=== PATIENT | male | born 1975 | race Caucasian/White ===

== ENCOUNTER 2017-12-20 06:10 | Inpatient (IN) | payer OTHER ==
[2017-12-16 10:30] VITALS: BMI 34.0
[2017-12-20] MEDS ORDERED: BENZOIN/ALOE VERA/STORAX/TOLU 58 ML BOTTLE ONE (07:07)
[2017-12-20] MEDS ORDERED: THROMBIN (BOVINE) 5,000 UNIT VIAL TP ONE ×2 (07:07→10:00)
[2017-12-20] MEDS ORDERED: HEPARIN NA (PORCINE) 5,000 UNITS/ML 1ML VIAL ONE (07:07)
[2017-12-20] MEDS ORDERED: BUPIVACAINE HCL/PF 0.25% (2.5MG/ML) 10 ML VIAL ONE (07:07)
[2017-12-20] MEDS ORDERED: LIDOCAINE HCL/PF 2% SDV 5ML VIAL ONE (07:52)
[2017-12-20] MEDS ORDERED: fentaNYL CITRATE 250 MCG/5 ML VIAL ONE ×3 (07:52→09:21)
[2017-12-20] MEDS ORDERED: MIDAZOLAM HCL 2 MG/2 ML SINGLE DOSE VIAL ONE ×2 (07:53)
[2017-12-20] MEDS ORDERED: PROPOFOL 20 ML ONE ×21 (07:53→10:38)
[2017-12-20] MEDS ORDERED: SUCCINYLCHOLINE CHLORIDE 200 MG/10 ML VIAL ONE (07:53)
[2017-12-20] MEDS ORDERED: ROCURONIUM BROMIDE 50 MG/5 ML VIAL ONE (07:54)
[2017-12-20] MEDS ORDERED: ceFAZolin SODIUM 1 GM VIAL IVPB ONE (08:40)
[2017-12-20] MEDS ORDERED: VANCOMYCIN 1,000 MG VIAL (RESTRICTED TO ID ONLY) ONE (08:41)
[2017-12-20] MEDS ORDERED: ceFAZolin SODIUM 1 GM VIAL ONE (08:41)
[2017-12-20] MEDS ORDERED: VANCOMYCIN 1,000 MG VIAL (RESTRICTED TO ID ONLY) IVPB ONE (08:45)
[2017-12-20] MEDS ORDERED: DEXAMETHASONE SOD PHOSPHATE 4 MG/1 ML VIAL ONE (08:55)
[2017-12-20] MEDS ORDERED: ONDANSETRON 4 MG/2 ML VIAL IVPUSH PRN ×2 (10:15→11:43)
--- NOTE | 2017-12-20 11:39 | PN ---
Progress Note (short form) - Note Progress Note: 42M s/p C4-C5 ACDF POD #0. -Admit to ICU x 24 hrs. for airway observation; OK to downgrade to floor 2017 if airway stable. -In case of emergency, remove anterior cervical spine dressing and pull out running suture. -Maintain head of bed >45 degrees. -Pain control: oral analgesia only. -DVT PPx: -Mechanical only: MANSOOR's, SCD's. -Post-op Ancef x 2 doses. -f/u AM labs. -Incentive spirometry. -PT/OT/Rehab, OOB. -WBAT B/L UE & LE. -No heavy lifting, bending or twisting. -d/c Parker catheter at midnight; f/u TOV. -Keep dressing clean & dry. -Puree diet; advance as tolerated. -B/L UE & LE NV checks. -Care per ICU & primary medical hospitalist teams. -Discharge planning: f/u [facility] [place] office Wednesday12/31/2017; call for appointment; . Se Mayfield MD (Orthopaedic Surgery).
[2017-12-20] MEDS ORDERED: oxyCODONE HCL 5 MG TABLET PO PRN (11:43)
[2017-12-20] MEDS ORDERED: traMADol HCL 50 MG TABLET PO PRN (11:43)
--- NOTE | 2017-12-20 11:43 | OP ---
Operative Note - Note: Operative Date: 12/20/17 Pre-Operative Diagnosis: Cervical radiculopathy Operation: C4-C5 ACDF Post-Operative Diagnosis: Same as Pre-op Surgeon: Se Mayfield Memory Care Director: Rainer Mayfield Anesthesiologist/FARM MACHINERY ASSEMBLER: Dulce Warner Anesthesia: General Specimens Removed: C4-C5 disc Estimated Blood Loss (mls): 20 Fluid Volume Replaced (mls): 700 Operative Report Dictated: Yes
[2017-12-20] MEDS: ACETAMINOPHEN 1000 MG/100 ML VIAL (NON FORMULARY) IVPB PRN (12:15)
[2017-12-20] MEDS: LACTATED RINGERS SOLUTION 1,000 ML IV SCH ×2 (14:30→15:00)
[2017-12-20] MEDS: ACETAMINOPHEN 325 MG TABLET (FP) PO SCH ×3 (15:00→23:06)
[2017-12-20] MEDS: oxyCODONE HCL 5 MG TABLET PO PRN (15:22)
--- NOTE | 2017-12-20 15:34 | CONSULT ---
Consultation: REQUESTING PROVIDER: Dr Mayfield CONSULT REQUEST: We have been asked to medically evaluate this patient for admission to the ICU. HISTORY OF PRESENT ILLNESS: Se Garcia is an otherwise healthy 42yo man who presented today for scheduled surgery with Dr Mayfield. He is now POD #0 s/p C4-C5 ACDF. Admission to the ICU was requested for postoperative airway monitoring and neurovascular checks overnight. The surgery was completed without known complications, and Mr Garcia reports that he is feeling well postoperatively. He notes a 5/10 pain at the surgical site but has no other complaints. REVIEW OF SYSTEMS: CONSTITUTIONAL: Absent: fever, chills, diaphoresis, generalized weakness, malaise, loss of appetite, weight change HEENT: Absent: rhinorrhea, nasal congestion, throat pain, throat swelling, difficulty swallowing, mouth swelling, ear pain, eye pain, visual changes. s/p C4-C5 ACDF, see HPI. CARDIOVASCULAR: Absent: chest pain, syncope, palpitations, irregular heart rate, lightheadedness , peripheral edema RESPIRATORY: Absent: cough, shortness of breath, dyspnea with exertion, orthopnea, wheezing, stridor, hemoptysis GASTROINTESTINAL: Absent: abdominal pain, abdominal distension, nausea, vomiting, diarrhea, constipation, melena, hematochezia GENITOURINARY: Absent: dysuria, frequency, urgency, hesitancy, hematuria, flank pain, genital pain MUSCULOSKELETAL: Absent: myalgia, arthralgia, joint swelling, back pain, neck pain SKIN: Absent: rash, itching, pallor HEMATOLOGIC/IMMUNOLOGIC: Absent: easy bleeding, easy bruising, lymphadenopathy, frequent infections ENDOCRINE: Absent: unexplained weight gain, unexplained weight loss, heat intolerance, cold intolerance NEUROLOGIC: Absent: headache, focal weakness or paresthesias, dizziness, unsteady gait, seizure, mental status changes, bladder or bowel incontinence PSYCHIATRIC: Absent: anxiety, depression, suicidal or homicidal ideation, hallucinations. PHYSICAL EXAMINATION Vital Signs - 24 hr 12/20/17 12/20/17 12/20/17 06:50 07:04 14:53 Temperature 98.1 F 97.8 F Pulse Rate 60 70 Respiratory 20 11 Rate Blood Pressure 110/70 118/78 O2 Sat by Pulse 98 93 L Oximetry (%) 12/20/17 15:05 Temperature 97.8 F Pulse Rate 80 Respiratory 11 Rate Blood Pressure 118/78 O2 Sat by Pulse 93 L Oximetry (%) General: Comfortable, no acute distress HEENT: PERRL, EOMI, MMM, voice normal, normal neck ROM, no LAD. Surgical dressing in place, c/d/i, no strike through. Cards: RRR, no murmur appreciated Pulm: Comfortable on room air, clear to auscultation bilaterally Abd: Soft, nontender, nondistended : No CVA tenderness Ext: Atraumatic. No LE edema. ROM intact. Strength 5/5 and equal bilaterally Vasc: Extremities WWP. Palpable radial and pedal pulses bilaterally Skin: Normal color, no rashes or lesions Neuro: A&Ox3, CN grossly intact, normal speech, motor/sensory grossly intact and symmetric Psych: Mood appropriate to situation Laboratory Results - last 24 hr 12/20/17 12/20/17 06:35 06:35 Blood Type A POSITIVE A POSITIVE Antibody Screen Negative Active Medications Generic Name Dose Route Start Last Admin Trade Name Freq PRN Reason Stop Dose Admin Acetaminophen 1,000 mg 12/20/17 10:19 12/20/17 12:15 Ofirmev Injection - IVPB 1,000 mg Q6H PRN Administration FEVER Acetaminophen 650 mg 12/20/17 11:45 12/20/17 15:00 Tylenol - PO Not Given Q6H HIREN Chlorhexidine Gluconate 1 applic 12/20/17 22:00 Hibiclens For Decolonization - TP HS HIREN Fentanyl 50 mcg 12/20/17 10:15 12/20/17 13:00 Sublimaze Injection - IVPUSH 50 mcg [id number] PRN Administration PAIN-PACU ORDER X 4 DOSES ONLY Lactated Ringer's 1,000 mls @ 125 mls/hr 12/20/17 10:15 12/20/17 15:00 Lactated Ringers Solution IV 125 mls/hr ASDIR HIREN Administration Lactated Ringer's 1,000 mls @ 125 mls/hr 12/20/17 11:45 12/20/17 14:30 Lactated Ringers Solution IV 0 mls ASDIR HIREN Administration Cefazolin Sodium/Dextrose 2 gm in 50 mls @ 100 mls/hr 12/20/17 16:30 Ancef 2 Gm Premixed Ivpb - IVPB 12/20/17 16:59 ONCE ONE Cefazolin Sodium/Dextrose 2 gm in 50 mls @ 100 mls/hr 12/21/17 00:30 Ancef 2 Gm Premixed Ivpb - IVPB 12/21/17 00:59 ONCE ONE Mupirocin 1 applic 12/20/17 22:00 Bactroban Ointment (For Decolonization) - NS 12/25/17 21:59 BID HIREN Ondansetron HCl 4 mg 12/20/17 10:15 Zofran Injection IVPUSH Q6H PRN NAUSEA AND/OR VOMITING Ondansetron HCl 4 mg 12/20/17 11:43 Zofran Injection IVPUSH Q6H PRN NAUSEA AND/OR VOMITING Oxycodone HCl 5 mg 12/20/17 11:43 Roxicodone - PO Q4H PRN PAIN LEVEL4-6 Oxycodone HCl 10 mg 12/20/17 11:43 12/20/17 15:22 Roxicodone - PO 10 mg Q4H PRN Administration PAIN LEVEL 7 - 10 Tramadol HCl 50 mg 12/20/17 11:43 Ultram - PO Q6H PRN PAIN LEVEL 1-5 ASSESSMENT/PLAN: Se Garcia is a 42yo man with no known medical history who was admitted to the ICU for airway monitoring, POD #0 s/p C4-C5 ACDF with Dr Mayfield this morning. Neuro: - s/p C4-C5 ACDF - Neurovascular checks of BLE and BUE per Dr Mayfield - Adequate pain control with acetaminophen 650mg Q6hr. Tramadol, oxycodone 5 , oxycodone 10 PRN CV: - No issues Pulm: - Comfortable on room air - IS 10x per hour Heme: - Hgb WNL - Monitor daily CBC GI: - Pureed diet postoperatively, plan to advance as tolerated Renal: - Parker in place postoperatively. D/C at midnight ID: - Perioperative ancef, 3 total doses - 2g ancef ordered for 14:30 and 00:30 to complete course Endo: - No issues Psych: - No issues Musc: - OOB as tolerated - No heavy lifting, no twisting, no bending. - Elevate HOB to 45 degrees - PT/OT ordered PPx: - Low DVT risk, SCD's. No pharmacologic ppx postoperatively - No indication for GI ppx FEN: - Pureed diet, advance as tolerated - SLIV - Replete lytes PRN Dispo: - Monitor in ICU - Likely to transfer to floor tomorrow Dispo: We will continue to follow the patient. Thank you for this consultative opportunity. To be discussed with Dr Watkins. Sho Amos PGY1 Visit type - Emergency Visit Emergency Visit: No - New Patient This patient is new to me today: Yes Date on this admission: 12/20/17 - Critical Care Critical Care patient: Yes Total Critical Care Time (in minutes): 30 Critical Care Statement: The care of this patient involved high complexity decision making to prevent further life threatening deterioration of the patient 's condition and/or to evaluate & treat vital organ system(s) failure or risk of failure.
[2017-12-20] MEDS ORDERED: CEFAZOLIN 2 GM/D5W 2 GM/50 ML ML IVPB ONE (16:30)
[2017-12-20] MEDS ORDERED: ceFAZolin 2 GRAM PREMIX BAG IVPB SCH (17:00)
--- NOTE | 2017-12-20 20:11 | OP ---
DATE OF OPERATION: DATE OF DICTATION: 12/20/2017 SURGEON: Se Mayfield MD FISCAL ASSISTANT: Rainer Mayfield MD PREOPERATIVE DIAGNOSIS: C4-C5 disk prolapse with C5 radiculopathy. POSTOPERATIVE DIAGNOSIS: C4-C5 disk prolapse with C5 radiculopathy. OPERATION PERFORMED: 1. Anterior cervical diskectomy fusion C4-C5. 2. Partial corpectomy C4. 3. Partial corpectomy C6. ANESTHESIA: General. ANTIBIOTICS GIVEN: Kefzol 2 g, 1 g vancomycin, 10 mg of Decadron given preoperative. DESCRIPTION OF PROCEDURE: The patient was correctly identified and brought to the operating room. Placed supine. Bolster was placed behind the scapulae extending the neck appropriately. The shoulders were pulled down distally for visualization purposes. Routine prepping with Betadine scrub solution, wiped off with alcohol, DuraPrep applied. A window drape applied. The dissection was made at the level of the cricothyroid interval in the lines of Rodger. An oblique incision made in the neck. Dissection was taken through the skin. The platysma was split longitudinally. This enabled easy access to the fuzzies, the areolar plane between the viscera and vessels. This was opened with digital finger dissection, and an 18-gauge needle bent 90/90 was placed in the C4-C5 disk, and this was verified with a lateral fluoroscopic x-ray. A retractor was placed mediolaterally deep to the longus coli with the teeth of the retractors in the longus coli. Pacoima pins were placed proximally and distally, and gentle distraction performed to open up the disk space. The disk was resected completely using curettes. A 40-mm tanja-tip bur was utilized to open up the rectangle, excise off the uncovertebral joints right down to the posterior longitudinal ligament. The posterior longitudinal was resected exposing the dura completely from left to right. All of the bleeding was stopped with bipolar Bovie as well as the use of thrombin and Gelfoam as well as FloSeal. The tissues were thoroughly lavaged once all hemostasis was achieved. A 7-mm Tetrafuse cage inserted. DBM putty was utilized, placed in the cage, and also superficially anteriorly to fill any space gaps. Once this had been performed, the plate, a size 14-mm Precision plate, with 14-mm screws 2 in C4 and 2 in C5 gained solid fixation. Verification of the plates on x-ray revealed good positioning and seating of the screws aimed more towards the endplates rather than axial center of the bone because of the venous singh effect of the center of the bone. The wound was again thoroughly lavaged. Closed the platysma with 3-0 Vicryl, subcutaneous with 3-0 Vicryl, skin 3-0 Monocryl and Steri-Strips. No complications. MD PERLA Malik/[id number]
[2017-12-20] MEDS: MUPIROCIN 2% TOPICAL OINTMENT FOR DECOLONIZATION NS SCH (21:31)
[2017-12-20] MEDS ORDERED: CHLORHEXIDINE GLUCONATE 4% CLEANSER FOR DECOLONIZATION TP SCH (22:00)
[2017-12-21] MEDS ORDERED: CEFAZOLIN 2 GM/D5W 2 GM/50 ML ML IVPB ONE (00:30)
[2017-12-21] MEDS: METOCLOPRAMIDE HCL INJECTION 10 MG/2 ML VIAL IVPUSH PRN ×2 (03:41→11:50)
[2017-12-21] MEDS: LACTATED RINGERS SOLUTION 1,000 ML IV SCH ×3 (03:41→11:45)
[2017-12-21] MEDS: ACETAMINOPHEN 325 MG TABLET (FP) PO SCH ×2 (06:14→11:45)
[2017-12-21 06:46] LABS: HEMATOCRIT 41.8 % (35.4-49); MCH 28.6 pg (25.7-33.7); MCHC 33.6 g/dl (32.0-35.9); MEAN CELL VOLUME 85.2 fl (80-96); MEAN PLT VOLUME 9.4 fl (7.5-11.1); PLATELET COUNT 199 K/MM3 (134-434); RDW 12.9 % (11.9-15.9); WHITE BLOOD COUNT 13.6 K/mm3 (4.0-10.0)
[2017-12-21 07:17] LABS: ANION GAP 6 MMOL/L (8-16); BLOOD UREA NITROGEN 14 mg/dL (7-18); CALCIUM 8.9 mg/dL (8.5-10.1); CHLORIDE 103 mmol/L (98-107); CO2 30 mmol/L (21-32); CREATININE 0.9 mg/dL (0.55-1.3); GLUCOSE,RANDOM 101 mg/dL (74-106); POTASSIUM 4.4 mmol/L (3.5-5.1); SODIUM 139 mmol/L (136-145)
[2017-12-21] MEDS: oxyCODONE HCL 5 MG TABLET PO PRN (08:05)
--- NOTE | 2017-12-21 08:32 | PN ---
Progress Note (short form) - Note Progress Note: Anesthesia POD#1 S/P Anterior Cervical discectomy with cage under GA VSS,had nausea and vomiting overnight,doing better today. Had some liquids Tolerated it,walking around,hiccoup is gone now. H/o AMAURY confirmed today. Gave suggestions to follow instructions for AMAURY. Dulce Warner MD.
--- NOTE | 2017-12-21 09:10 | PN ---
Physical Exam: SUBJECTIVE: Patient seen and examined at bedside, had nausea/vomiting overnight , limited appetite, voiding and passing flatus, no BM as yet. N/V resolved. Currently having hiccups irritating surgical site, given Reglan with some relief. OBJECTIVE: Vital Signs Period Temp Pulse Resp BP Sys/[place] Pulse Ox Last 24 Hr 97.6 F-98.6 F 50-94 11-22 109-163/64-94 93-98 GENERAL: A&Ox3 HEAD: Normal with no signs of trauma. EYES: PERRL, extraocular movements intact, sclera anicteric, conjunctiva clear. No ptosis. ENT: Ears normal, nares patent, oropharynx clear without exudates, moist mucous membranes. NECK: Trachea midline, full range of motion, supple. LUNGS: Breath sounds equal, clear to auscultation bilaterally, no wheezes, no crackles, no accessory muscle use. HEART: Regular rate and rhythm, S1, S2 without murmur, rub or gallop. ABDOMEN: Soft, nontender, nondistended, normoactive bowel sounds, no guarding, no rebound, no hepatosplenomegaly, no masses. EXTREMITIES: 2+ pulses, warm, well-perfused, no edema. NEUROLOGICAL: Cranial nerves II through XII grossly intact. Normal speech, gait not observed. PSYCH: Normal mood, normal affect. SKIN: Warm, dry, normal turgor, no rashes or lesions noted Laboratory Results - last 24 hr 12/21/17 12/21/17 05:30 05:30 WBC 13.6 H RBC 4.90 Hgb 14.0 Hct 41.8 MCV 85.2 MCH 28.6 MCHC 33.6 RDW 12.9 Plt Count 199 MPV 9.4 Sodium 139 Potassium 4.4 Chloride 103 Carbon Dioxide 30 Anion Gap 6 L BUN 14 Creatinine 0.9 Creat Clearance w eGFR > 60 Random Glucose 101 Calcium 8.9 Active Medications Generic Name Dose Route Start Last Admin Trade Name Freq PRN Reason Stop Dose Admin Acetaminophen 1,000 mg 12/20/17 10:19 12/20/17 12:15 Ofirmev Injection - IVPB 1,000 mg Q6H PRN Administration FEVER Acetaminophen 650 mg 12/20/17 11:45 12/21/17 06:14 Tylenol - PO 650 mg Q6H HIREN Administration Chlorhexidine Gluconate 1 applic 12/20/17 22:00 12/20/17 21:31 Hibiclens For Decolonization - TP 1 applic HS HIREN Administration Lactated Ringer's 1,000 mls @ 125 mls/hr 12/20/17 10:15 12/21/17 03:41 Lactated Ringers Solution IV 125 mls/hr ASDIR HIREN Administration Lactated Ringer's 1,000 mls @ 125 mls/hr 12/20/17 11:45 12/20/17 14:30 Lactated Ringers Solution IV 0 mls ASDIR HIREN Administration Metoclopramide HCl 10 mg 12/21/17 03:32 12/21/17 03:41 Reglan Injection - IVPUSH 10 mg Q6H PRN Administration NAUSEA AND/OR VOMITING Mupirocin 1 applic 12/20/17 22:00 12/20/17 21:31 Bactroban Ointment (For Decolonization) - NS 12/25/17 21:59 1 applic BID HIREN Administration Ondansetron HCl 4 mg 12/20/17 10:15 Zofran Injection IVPUSH Q6H PRN NAUSEA AND/OR VOMITING Ondansetron HCl 4 mg 12/20/17 11:43 Zofran Injection IVPUSH Q6H PRN NAUSEA AND/OR VOMITING Oxycodone HCl 5 mg 12/20/17 11:43 Roxicodone - PO Q4H PRN PAIN LEVEL4-6 Oxycodone HCl 10 mg 12/20/17 11:43 12/21/17 08:05 Roxicodone - PO 10 mg Q4H PRN Administration PAIN LEVEL 7 - 10 Tramadol HCl 50 mg 12/20/17 11:43 Ultram - PO Q6H PRN PAIN LEVEL 1-5 ASSESSMENT/PLAN: 42 y/o M w/ no sig PMHx POD1 s/p C4-C5 ACDF #POD1 s/p C4-C5 ACDF -Sx w/o complication, minimal blood loss -Incentive spirometry -Parker removed -Early Ambulation, OOB -Pain controlled with PO Tramadol, Tylenol, Oxicodone HCl 10 mg Q4 PRN for pain 7-10 -Reglan PRN for hiccups -WBAT #DVT PPx -SCDs only #FEN -LR @ 125 -lytes wnl -Advance as tolerated #dispo -critical care no longer required -awaiting surgical/primary team recommendation for d/c vs. transfer to med-surg Visit type - Emergency Visit Emergency Visit: No - New Patient This patient is new to me today: Yes Date on this admission: 12/21/17 - Critical Care Critical Care patient: Yes Total Critical Care Time (in minutes): 40 Critical Care Statement: The care of this patient involved high complexity decision making to prevent further life threatening deterioration of the patient 's condition and/or to evaluate & treat vital organ system(s) failure or risk of failure.
--- NOTE | 2017-12-21 10:10 | PN ---
Physical Exam: SUBJECTIVE: Patient seen and examined this AM. Post op day one. He says his pain was well controlled overnight. He says he is having some soreness and had hiccups yesterday which caused some pain, but that they have resolved today after eating. He says he tolerated his puree breakfast well. He has passed flatus but not yet had a bowel movement. OBJECTIVE: Vital Signs Period Temp Pulse Resp BP Sys/[place] Pulse Ox Last 24 Hr 97.2 F-98.6 F 50-94 11-22 109-163/64-94 93-98 GENERAL: A&O, no acute distress HEAD: Normocephalic, atraumatic. EYES: PERRL, no scleral icterus EARS, NOSE, THROAT: oropharynx clear without exudates. Moist mucous membranes. NECK: supple without lymphadenopathy, dressing in tact anteriorly, clean and dry , minimal tenderness to palpation LUNGS: CTA b/l, no crackles or wheezes HEART: Regular rate and rhythm, normal S1 and S2 without murmur ABDOMEN: Soft, nontender to palpation, normoactive bowel sounds MUSCULOSKELETAL: No bony deformities or tenderness. NEUROLOGICAL: Cranial nerves II-XII grossly intact. Normal speech. PSYCHIATRIC: Cooperative. Good eye contact. Appropriate mood and affect. Laboratory Results - last 24 hr 12/21/17 12/21/17 05:30 05:30 WBC 13.6 H RBC 4.90 Hgb 14.0 Hct 41.8 MCV 85.2 MCH 28.6 MCHC 33.6 RDW 12.9 Plt Count 199 MPV 9.4 Sodium 139 Potassium 4.4 Chloride 103 Carbon Dioxide 30 Anion Gap 6 L BUN 14 Creatinine 0.9 Creat Clearance w eGFR > 60 Random Glucose 101 Calcium 8.9 Active Medications Generic Name Dose Route Start Last Admin Trade Name Freq PRN Reason Stop Dose Admin Acetaminophen 1,000 mg 12/20/17 10:19 12/20/17 12:15 Ofirmev Injection - IVPB 1,000 mg Q6H PRN Administration FEVER Acetaminophen 650 mg 12/20/17 11:45 12/21/17 06:14 Tylenol - PO 650 mg Q6H HIREN Administration Chlorhexidine Gluconate 1 applic 12/20/17 22:00 12/20/17 21:31 Hibiclens For Decolonization - TP 1 applic HS HIREN Administration Lactated Ringer's 1,000 mls @ 125 mls/hr 12/20/17 10:15 12/21/17 03:41 Lactated Ringers Solution IV 125 mls/hr ASDIR HIREN Administration Lactated Ringer's 1,000 mls @ 125 mls/hr 12/20/17 11:45 12/20/17 14:30 Lactated Ringers Solution IV 0 mls ASDIR HIREN Administration Metoclopramide HCl 10 mg 12/21/17 03:32 12/21/17 03:41 Reglan Injection - IVPUSH 10 mg Q6H PRN Administration NAUSEA AND/OR VOMITING Mupirocin 1 applic 12/20/17 22:00 12/20/17 21:31 Bactroban Ointment (For Decolonization) - NS 12/25/17 21:59 1 applic BID HIREN Administration Ondansetron HCl 4 mg 12/20/17 10:15 Zofran Injection IVPUSH Q6H PRN NAUSEA AND/OR VOMITING Ondansetron HCl 4 mg 12/20/17 11:43 Zofran Injection IVPUSH Q6H PRN NAUSEA AND/OR VOMITING Oxycodone HCl 5 mg 12/20/17 11:43 Roxicodone - PO Q4H PRN PAIN LEVEL4-6 Oxycodone HCl 10 mg 12/20/17 11:43 12/21/17 08:05 Roxicodone - PO 10 mg Q4H PRN Administration PAIN LEVEL 7 - 10 Tramadol HCl 50 mg 12/20/17 11:43 Ultram - PO Q6H PRN PAIN LEVEL 1-5 ASSESSMENT/PLAN: 42 yo Male with no PMH admitted s/p C4-C5 ACDF. POD 1 C4C5 ACDF POD 1 -20 cc blood loss intraop, 700 cc of crystalloid replacement -No reported complications intraop -Incentive spirometry -Parker removed -Early Ambulation, OOB -Pain controlled with PO Tramadol, Tylenol, Oxicodone HCl 10 mg Q4 PRN for pain 7-10 -Received reglan yesterday for hiccups, currently resolved, will monitor -Can be transferred to med/surg today or discharged pending surgery okay, no post-op swelling or concerning complications -Physical Therapy Eval, pt requesting soft collar DVT Prophylaxis -Mechanical only, SCD's FEN -Fluids: LR @ 125 cc/hr -Electrolytes: No electrolyte abnormalities, BMP in AM -Nutrition: Tolerating puree well. Can advance as tolerated Disposition ICU, can be transferred to Med/Surg Visit type - Emergency Visit Emergency Visit: No - New Patient This patient is new to me today: Yes Date on this admission: 12/21/17 - Critical Care Critical Care patient: Yes Total Critical Care Time (in minutes): 35 Critical Care Statement: The care of this patient involved high complexity decision making to prevent further life threatening deterioration of the patient 's condition and/or to evaluate & treat vital organ system(s) failure or risk of failure.
[2017-12-21] MEDS: MUPIROCIN 2% TOPICAL OINTMENT FOR DECOLONIZATION NS SCH ×2 (11:50→21:54)
[2017-12-21] MEDS: ACETAMINOPHEN 1000 MG/100 ML VIAL (NON FORMULARY) IVPB PRN (12:33)
[2017-12-21] MEDS ORDERED: oxyCODONE HCL 5 MG TABLET PO PRN ×2 (13:23→17:30)
[2017-12-21] MEDS ORDERED: ACETAMINOPHEN 325 MG TABLET (FP) PO PRN ×2 (13:23→17:30)
--- NOTE | 2017-12-21 13:26 | PN ---
Teaching Attending Note Name of Resident: Derrick Monterroso ATTENDING PHYSICIAN STATEMENT I saw and evaluated the patient. I reviewed the resident's note and discussed the case with the resident. I agree with the resident's findings and plan as documented with exceptions below. SUBJECTIVE: Patient seen and examined. Tolerating diet, with some neck pain. Overall better. Passing gas, no other concerns. OBJECTIVE: Vital Signs Period Temp Pulse Resp BP Sys/[place] Pulse Ox Last 24 Hr 97.1 F-98.6 F 50-84 11-21 109-142/63-84 93-97 Intake & Output 12/18/17 12/19/17 12/20/17 12/21/17 23:59 23:59 23:59 23:59 Intake Total 1700 1650 Output Total 1000 550 Balance 700 1100 General: sitting in chair in no acute distress neck: anterior dressing clean, no bleed or discharge Neuro AAOx3, facial symmetry, neck ROM limited given above, power 5/5 all extremities, sensation intact and symmetric to touch bilateral upper and lower extremities Abdomen:Soft, NT, positive good bowel sounds Extremities: no edema Home Medications Medication Instructions Recorded NK [No Known Home Medication] 12/16/17 Active Medications Acetaminophen (Tylenol -) 650 mg PO Q6H PRN PRN Reason: PAIN LEVEL 1-5 Chlorhexidine Gluconate (Hibiclens For Decolonization -) 1 applic TP HS [facility] Last Admin: 12/20/17 21:31 Dose: 1 applic Metoclopramide HCl (Reglan Injection -) 10 mg IVPUSH Q6H PRN PRN Reason: NAUSEA AND/OR VOMITING Last Admin: 12/21/17 11:50 Dose: 10 mg Mupirocin (Bactroban Ointment (For Decolonization) -) 1 applic NS BID [facility] Stop: 12/25/17 21:59 Last Admin: 12/21/17 11:50 Dose: 1 applic Ondansetron HCl (Zofran Injection) 4 mg IVPUSH Q6H PRN PRN Reason: NAUSEA AND/OR VOMITING Oxycodone HCl (Roxicodone -) 5 mg PO Q4H PRN PRN Reason: PAIN LEVEL 6-10 Tramadol HCl (Ultram -) 50 mg PO Q6H PRN PRN Reason: PAIN LEVEL 1-5 Laboratory Results - last 24 hr 12/21/17 12/21/17 05:30 05:30 WBC 13.6 H RBC 4.90 Hgb 14.0 Hct 41.8 MCV 85.2 MCH 28.6 MCHC 33.6 RDW 12.9 Plt Count 199 MPV 9.4 Sodium 139 Potassium 4.4 Chloride 103 Carbon Dioxide 30 Anion Gap 6 L BUN 14 Creatinine 0.9 Creat Clearance w eGFR > 60 Random Glucose 101 Calcium 8.9 ASSESSMENT AND PLAN: 42 yom with Cervical radiculopathy s/p C4-C5 ACDF POD 1 -Cervical radiculopathy s/p C4-C5 ACDF 12/20/2017 -Leucocytosis suspect stress induced from above PLan: Pureed diet, speech swallow eval. PO as tolerated. PT eval, activity per Dr. Mayfield. SCDs Pain control with tylenol/oxycodone Add bowel regimen. Incentive spirometry Dispo dc in 24 hours if continues to improve and no concerns. Agree with transfer out of ICU. Plan discussed with patient in detail, all questions answered Total critical care time spent in ICU 35 min.
--- NOTE | 2017-12-21 14:39 | PN ---
Teaching Attending Note Name of Resident: Rainer López ATTENDING PHYSICIAN STATEMENT I saw and evaluated the patient. I reviewed the resident's note and discussed the case with the resident. I agree with the resident's findings and plan as documented. SUBJECTIVE: Pain seems well controlled. No CP or SOB. Tolerated some PO intake. OBJECTIVE: Intake & Output 12/18/17 12/19/17 12/20/17 12/21/17 23:59 23:59 23:59 23:59 Intake Total 1700 2150 Output Total 1000 550 Balance 700 1600 Last Vital Signs Temp Pulse Resp BP Pulse Ox 97.0 F L 62 14 118/81 97 12/21/17 14:00 12/21/17 14:00 12/21/17 14:00 12/21/17 14:00 12/21/17 08:00 Active Medications Acetaminophen (Tylenol -) 650 mg PO Q6H PRN PRN Reason: PAIN LEVEL 1-5 Chlorhexidine Gluconate (Hibiclens For Decolonization -) 1 applic TP HS [facility] Last Admin: 12/20/17 21:31 Dose: 1 applic Docusate Sodium (Colace -) 100 mg PO BID [facility] Metoclopramide HCl (Reglan Injection -) 10 mg IVPUSH Q6H PRN PRN Reason: NAUSEA AND/OR VOMITING Last Admin: 12/21/17 11:50 Dose: 10 mg Mupirocin (Bactroban Ointment (For Decolonization) -) 1 applic NS BID [facility] Stop: 12/25/17 21:59 Last Admin: 12/21/17 11:50 Dose: 1 applic Ondansetron HCl (Zofran Injection) 4 mg IVPUSH Q6H PRN PRN Reason: NAUSEA AND/OR VOMITING Oxycodone HCl (Roxicodone -) 5 mg PO Q4H PRN PRN Reason: PAIN LEVEL 6-10 Senna (Senna -) 2 tab PO HS [facility] Tramadol HCl (Ultram -) 50 mg PO Q6H PRN PRN Reason: PAIN LEVEL 1-5 GENERAL: A&Ox3 HEAD: Normal with no signs of trauma. EYES: PERRL, extraocular movements intact, sclera anicteric, conjunctiva clear. No ptosis. ENT: Ears normal, nares patent, oropharynx clear without exudates, moist mucous membranes. NECK: Trachea midline, full range of motion, supple. LUNGS: Clear to auscultation bilaterally HEART: Regular rate and rhythm, S1, S2 without murmur, rub or gallop. ABDOMEN: Soft, nontender, nondistended, normoactive bowel sounds, no guarding, no rebound, no hepatosplenomegaly, no masses. EXTREMITIES: 2+ pulses, warm, well-perfused, no edema. NEUROLOGICAL: Non-focal PSYCH: Normal mood, normal affect. SKIN: Warm, dry, normal turgor, no rashes or lesions noted Laboratory Results - last 24 hr 12/21/17 12/21/17 05:30 05:30 WBC 13.6 H RBC 4.90 Hgb 14.0 Hct 41.8 MCV 85.2 MCH 28.6 MCHC 33.6 RDW 12.9 Plt Count 199 MPV 9.4 Sodium 139 Potassium 4.4 Chloride 103 Carbon Dioxide 30 Anion Gap 6 L BUN 14 Creatinine 0.9 Creat Clearance w eGFR > 60 Random Glucose 101 Calcium 8.9 ASSESSMENT/PLAN: 42 M, POD# 1 S/P C4-C5 ACDF Incentive spirometry Parker removed Early Ambulation, OOB Pain control SCDs PO as tolerated Dr Watkins
[2017-12-21] MEDS ORDERED: ONDANSETRON 4 MG/2 ML VIAL IVPUSH PRN (17:30)
[2017-12-21] MEDS ORDERED: METOCLOPRAMIDE HCL INJECTION 10 MG/2 ML VIAL IVPUSH PRN (17:30)
[2017-12-21] MEDS ORDERED: traMADol HCL 50 MG TABLET PO PRN (17:30)
[2017-12-21] MEDS: DOCUSATE SODIUM 100 MG CAPSULE (FP) PO SCH (21:54)
[2017-12-21] MEDS ORDERED: SENNOSIDES 8.6MG TABLET (FP) PO SCH ×2 (22:00)
[2017-12-21] MEDS ORDERED: CHLORHEXIDINE GLUCONATE 4% CLEANSER FOR DECOLONIZATION TP SCH (22:00)
[2017-12-21] MEDS ORDERED: DOCUSATE SODIUM 100 MG CAPSULE (FP) PO SCH (22:00)
[2017-12-22 06:39] LABS: HEMATOCRIT 41.7 % (35.4-49); HEMOGLOBIN 14.2 GM/dL (11.7-16.9); MCH 29.2 pg (25.7-33.7); MEAN CELL VOLUME 85.9 fl (80-96); MEAN PLT VOLUME 9.1 fl (7.5-11.1); PLATELET COUNT 172 K/MM3 (134-434); RBC 4.85 M/mm3 (4.00-5.60); RDW 13.2 % (11.9-15.9); WHITE BLOOD COUNT 10.6 K/mm3 (4.0-10.0)
[2017-12-22 06:58] LABS: ANION GAP 5 MMOL/L (8-16); BLOOD UREA NITROGEN 14 mg/dL (7-18); CALCIUM 8.6 mg/dL (8.5-10.1); CHLORIDE 102 mmol/L (98-107); CO2 32 mmol/L (21-32); CREATININE 0.9 mg/dL (0.55-1.3); GLUCOSE,RANDOM 99 mg/dL (74-106); MAGNESIUM 2.4 mg/dL (1.8-2.4); POTASSIUM 3.9 mmol/L (3.5-5.1); SODIUM 139 mmol/L (136-145)
[2017-12-22] MEDS: DOCUSATE SODIUM 100 MG CAPSULE (FP) PO SCH (10:18)
[2017-12-22] MEDS: MUPIROCIN 2% TOPICAL OINTMENT FOR DECOLONIZATION NS SCH (10:19)
--- NOTE | 2017-12-22 11:19 | CONSULT ---
Admitting History and Physical - Primary Care Physician PCP: Jackie Mendoza - Admission History of Present Illness: 42 yom with Cervical radiculopathy s/p C4-C5 ACDF POD 1 -Cervical radiculopathy s/p C4-C5 ACDF 12/20/2017 Selected Entries 12/20/17 12/21/17 12/21/17 20:27 02:00 06:00 Breakfast Lunch Supper 75% Temperature 97.8 F 98.2 F 12/21/17 12/21/17 12/21/17 08:00 10:00 12:00 Breakfast 50% Lunch Supper Temperature 97.4 F L 97.2 F L 97.1 F L 12/21/17 12/21/17 12/21/17 13:47 14:00 16:00 Breakfast 100% Lunch 100% Supper Temperature 97.0 F L 97.0 F L 12/21/17 12/21/17 12/21/17 18:00 19:43 22:00 Breakfast 100% Lunch 100% Supper 100% Temperature 97.0 F L 98.9 F 12/22/17 12/22/17 02:00 06:00 Breakfast Lunch Supper Temperature 98.2 F 98.4 F Laboratory Tests 12/21/17 12/22/17 05:30 05:30 WBC 13.6 H 10.6 H - Smoking History Smoking history: Never smoked - Alcohol/Substance Use Hx Alcohol Use: Yes (SOCIAL) History - Admission Reason For Visit: CERVICAL DISORDER W MYELOPATHY - Hearing Hearing: Normal Speech Evaluation - Communication Primary Language: GREEK Communication: Yes: Within Normal Limits Oral Expression Ability: Yes: No Impairment - Speech Production Able to Make Needs Known: Yes: WNL Intelligibility: Yes: WNL - Speech Characteristics Voice Loudness: Normal Voice Pitch: Yes: Normal Voice Phonatory-based Quality: Yes: Normal Speech Pattern: Normal Speech Clarity: < 100% Nasal Resonance: Normal Articulation: Yes: Precise Rate of Speech: Intact - Language/Auditory Comprehension Follows: Yes: Complex Commands - Language/Verbal Expression Able to Respond to Simple Queries: Yes: WNL Able to Communicate Wants and Needs: Yes: WNL Functional Communication Status: Yes: WNL - Memory/Perception long-term Memory: Yes: WNL Short Term Memory: Yes: WNL - Swallow Evaluation/Bedside Assessment Current Nutritional Intake: Dysphagia Pureed, Thin Liquids Oral Secretions: Yes: WFL (Pt reports some phlegm in his throat, which is improving. He reports pain intermittently when swallowing hard or coughing to clear his throat.) Dentition: Yes: Adequate Facial Symmetry at Rest: Symmetrical Facial Symmetry on Retraction: Symmetrical Facial Movement: Controlled Against Resistance Opening: Normal Against Resistance Closing: Normal Pucker Lips: Normal Smile: Normal Lingual Movement: Normal, Symmetric Lingual Speed of Movement: Normal Lingual Movement Strgth Against Opposition: Normal Lingual Movement Characteristics: Normal Velopharyngeal Movement: Normal Laryngeal Movement: Able to Palpate Rate of Intake: WFL Bolus Size: WFL Labial Seal: WFL Chewing: WFL Oral Prep Time: WFL A-P Transit: WFL Pocketing: None Timing of Swallow: WFL Odynophagia: Pharyngeal Coughing/Throat Clear: No Change in Voice: No Recommendations - Speech Evaluation, Impression/Plan Impression: Pt reports some phlegm in his throat, which is improving. He reports pain intermittently when swallowing hard or coughing to clear his throat. Swallow is overtly timely and strong with good vocal quality. He swallows twice per tsn of applesauce. No responsive cough on PO trials of zander cracker, puree, 3 [address] water [address]st. He does report pharyngeal odynophaia swallowing a bite of the cracker, moistened with applesauce. I suspect stasis with need for greater laryngeal excusion to clear the cookie. Follow up of water was beneficial. - Dysphagia Impressions/Plan Swallowing Skills: Impaired Dysphagia Impressions: Mild Impairment (post-op. Likely edema.Suspect mild stasis, cleared with f/u of thin liquid.) *Silent aspiration: cannot be R/O at bedside Dysphagia Treatment Plan: Small Bites, Chin Tuck/Down, Safe Rate, OOB for meals , OOB for 1 h. after meals, Other (alternate puree with 2 swallows, followed by a sip of water. Complete meal with water.) Recommendations: Modified Barium Swallow (as out pt if odynophagia persists in a couple of days/to upgrade diet safely.) - Recommendations Diet Consistency: Dysphagia Pureed (pt and educated on pureeing foods until improved.) Liquids: Thin Liquids
[2017-12-22] MEDS ORDERED: LIDOCAINE VISCOUS 2% ORAL/TOP 20 ML UNIT-DOSE CUP MM PRN (12:46)
--- NOTE | 2017-12-22 13:04 | PN ---
Teaching Attending Note Name of Resident: Rainer López ATTENDING PHYSICIAN STATEMENT I saw and evaluated the patient. I reviewed the resident's note and discussed the case with the resident. I agree with the resident's findings and plan as documented. SUBJECTIVE: Pt seen and examined in the ICU. Pain controlled. c/o sore throat when swallowing. Tolerating PO. Ambulating. +flatus but no BM yet. OBJECTIVE: Vital Signs Period Temp Pulse Resp BP Sys/R[place]dale Pulse Ox Last 24 Hr 97.0 F-98.9 F 62-90 13-18 105-140/48-87 97-97 Intake & Output 12/19/17 12/20/17 12/21/17 12/22/17 23:59 23:59 23:59 23:59 Intake Total 1700 2825 Output Total 1000 550 Balance 700 2275 Gen: NAD at rest Heart: RRR Lung: decreased breath sounds at the bases Abd: soft, nontender Ext: no edema CBC, BMP 12/22/17 05:30 12/22/17 05:30 Active Medications Acetaminophen (Tylenol -) 650 mg PO Q6H PRN PRN Reason: PAIN LEVEL 1 - 3 Chlorhexidine Gluconate (Hibiclens For Decolonization -) 1 applic TP [facility] Last Admin: 12/21/17 21:54 Dose: 1 applic Docusate Sodium (Colace -) 100 mg PO BID [facility] Last Admin: 12/22/17 10:18 Dose: 100 mg Lidocaine HCl (Xylocaine 2% Viscous) 15 ml MM Q6H PRN PRN Reason: PAIN Metoclopramide HCl (Reglan Injection -) 10 mg IVPUSH Q6H PRN PRN Reason: NAUSEA AND/OR VOMITING Mupirocin (Bactroban Ointment (For Decolonization) -) 1 applic NS BID [facility] Stop: 12/25/17 21:59 Last Admin: 12/22/17 10:19 Dose: Not Given Ondansetron HCl (Zofran Injection) 4 mg IVPUSH Q6H PRN PRN Reason: NAUSEA AND/OR VOMITING Oxycodone HCl (Roxicodone -) 5 mg PO Q4H PRN PRN Reason: PAIN LEVEL 7 - 10 Senna (Senna -) 2 tab PO [facility] Last Admin: 12/21/17 21:54 Dose: 2 tab Tramadol HCl (Ultram -) 50 mg PO Q6H PRN PRN Reason: PAIN LEVEL 4 - 6 ASSESSMENT AND PLAN: Cervical Radiculopathy s/p C4-C5 ACDF - pain control - physical therapy - bowel regimen - DVT prophylaxis - d/c planning
[2017-12-22 13:24] VITALS: PULSE 88
[2017-12-22] MEDS ORDERED: BENZOCAINE/MENTH/CETYLPYRD CL 1 EACH LOZENGE MM PRN (13:54)
--- NOTE | 2017-12-22 14:04 | PN ---
Teaching Attending Note Name of Resident: Derrick Monterroso ATTENDING PHYSICIAN STATEMENT I saw and evaluated the patient. I reviewed the resident's note and discussed the case with the resident. I agree with the resident's findings and plan as documented with exceptions below. SUBJECTIVE: Patient seen and examined, Some pain with swallowing otherwise improved. Tolerating diet, pain well controlled, worked with PT with no concerns. OBJECTIVE: Vital Signs Period Temp Pulse Resp BP Sys/[place]dale Pulse Ox Last 24 Hr 97.0 F-98.9 F 66-90 13-20 92-140/48-87 97-97 Intake & Output 12/19/17 12/20/17 12/21/17 12/22/17 23:59 23:59 23:59 23:59 Intake Total 1700 2825 Output Total 1000 550 Balance 700 2275 Weight 230 lb General: sitting in chair in no acute distress, no stridor noted Neck:dressin clean, no discharge, or swelling noted Active Medications Acetaminophen (Tylenol -) 650 mg PO Q6H PRN PRN Reason: PAIN LEVEL 1 - 3 Benzocaine/Menthol (Cepacol Lozenge -) 1 each MM PRN PRN PRN Reason: SORE THROAT Chlorhexidine Gluconate (Hibiclens For Decolonization -) 1 applic TP [facility] Last Admin: 12/21/17 21:54 Dose: 1 applic Docusate Sodium (Colace -) 100 mg PO BID [facility] Last Admin: 12/22/17 10:18 Dose: 100 mg Lidocaine HCl (Xylocaine 2% Viscous Oral -) 15 ml MM Q6H PRN PRN Reason: PAIN Metoclopramide HCl (Reglan Injection -) 10 mg IVPUSH Q6H PRN PRN Reason: NAUSEA AND/OR VOMITING Mupirocin (Bactroban Ointment (For Decolonization) -) 1 applic NS BID [facility] Stop: 12/25/17 21:59 Last Admin: 12/22/17 10:19 Dose: Not Given Ondansetron HCl (Zofran Injection) 4 mg IVPUSH Q6H PRN PRN Reason: NAUSEA AND/OR VOMITING Oxycodone HCl (Roxicodone -) 5 mg PO Q4H PRN PRN Reason: PAIN LEVEL 7 - 10 Senna (Senna -) 2 tab PO [facility] Last Admin: 12/21/17 21:54 Dose: 2 tab Tramadol HCl (Ultram -) 50 mg PO Q6H PRN PRN Reason: PAIN LEVEL 4 - 6 Laboratory Results - last 24 hr 12/22/17 12/22/17 05:30 05:30 WBC 10.6 H RBC 4.85 Hgb 14.2 Hct 41.7 MCV 85.9 MCH 29.2 MCHC 34.0 RDW 13.2 Plt Count 172 MPV 9.1 Sodium 139 Potassium 3.9 Chloride 102 Carbon Dioxide 32 Anion Gap 5 L BUN 14 Creatinine 0.9 Creat Clearance w eGFR > 60 Random Glucose 99 Calcium 8.6 Phosphorus 4.0 Magnesium 2.4 ASSESSMENT AND PLAN: 42 yom with Cervical radiculopathy s/p C4-C5 ACDF POD 1 -Cervical radiculopathy s/p C4-C5 ACDF 12/20/2017 -Leucocytosis suspect stress induced from above PLan: speech swallow input noted. Dysphagia pureed diet, with aspiration precautions, discussed with patient. outpatient MBS if fails to advance. Cepacol lozenges and lidocaine viscous prn. Outpatient follow up with Dr. Mayfield. Activity/diet instructions discussed with patient. Home PT. D/c home today with outpatient follow up with Dr. Mayfield. Plan discussed with patient in detail, all questions answered. Patient relays understanding and in agreement. Total critical care time spent in ICU 35 min.
--- NOTE | 2017-12-22 14:07 | PN ---
Physical Exam: SUBJECTIVE: - Continued sore throat, no new complaints today. Still no bowel movement. - Has been up walking without difficulty OBJECTIVE: Vital Signs Period Temp Pulse Resp BP Sys/R[place]dale Pulse Ox Last 24 Hr 97.0 F-98.9 F 66-90 13-20 92-140/48-87 97-97 General: Comfortable, no acute distress HEENT: PERRL, EOMI, MMM, voice normal, normal neck ROM. Dressing in place, c/d/ i. Cards: RRR, no murmur appreciated Pulm: Comfortable on room air, clear to auscultation bilaterally Abd: Soft, nontender, nondistended Ext: Atraumatic. No LE edema. ROM intact. Strength 5/5 and equal bilaterally Vasc: Extremities WWP. Palpable radial and pedal pulses bilaterally Skin: Normal color, no rashes or lesions Neuro: A&Ox3, CN grossly intact, normal speech, motor/sensory grossly intact and symmetric Psych: Mood appropriate to situation Laboratory Results - last 24 hr 12/22/17 12/22/17 05:30 05:30 WBC 10.6 H RBC 4.85 Hgb 14.2 Hct 41.7 MCV 85.9 MCH 29.2 MCHC 34.0 RDW 13.2 Plt Count 172 MPV 9.1 Sodium 139 Potassium 3.9 Chloride 102 Carbon Dioxide 32 Anion Gap 5 L BUN 14 Creatinine 0.9 Creat Clearance w eGFR > 60 Random Glucose 99 Calcium 8.6 Phosphorus 4.0 Magnesium 2.4 Active Medications Generic Name Dose Route Start Last Admin Trade Name Freq PRN Reason Stop Dose Admin Acetaminophen 650 mg 12/21/17 17:30 Tylenol - PO Q6H PRN PAIN LEVEL 1 - 3 Benzocaine/Menthol 1 each 12/22/17 13:54 Cepacol Lozenge - MM PRN PRN SORE THROAT Chlorhexidine Gluconate 1 applic 12/21/17 22:00 12/21/17 21:54 Hibiclens For Decolonization - TP 1 applic HS [facility] Administration Docusate Sodium 100 mg 12/21/17 22:00 12/22/17 10:18 Colace - PO 100 mg BID [facility] Administration Lidocaine HCl 15 ml 12/22/17 12:46 Xylocaine 2% Viscous Oral - MM Q6H PRN PAIN Metoclopramide HCl 10 mg 12/21/17 17:30 Reglan Injection - IVPUSH Q6H PRN NAUSEA AND/OR VOMITING Mupirocin 1 applic 12/21/17 22:00 12/22/17 10:19 Bactroban Ointment (For Decolonization) - NS 12/25/17 21:59 Not Given BID [facility] Ondansetron HCl 4 mg 12/21/17 17:30 Zofran Injection IVPUSH Q6H PRN NAUSEA AND/OR VOMITING Oxycodone HCl 5 mg 12/21/17 17:30 Roxicodone - PO Q4H PRN PAIN LEVEL 7 - 10 Senna 2 tab 12/21/17 22:00 12/21/17 21:54 Senna - PO 2 tab HS [facility] Administration Tramadol HCl 50 mg 12/21/17 17:30 Ultram - PO Q6H PRN PAIN LEVEL 4 - 6 ASSESSMENT/PLAN: Se Garcia is a 42yo man with no known medical history who was admitted to the ICU for airway monitoring, POD #2 s/p C4-C5 ACDF for cervical radiculopathy. He has recovered well postoperatively and should be ready for discharge home today. Neuro: - POD #2 s/p C4-C5 ACDF - Neurovascular checks of BLE and BUE per Dr Mayfield - Adequate pain control with acetaminophen, tramadol, oxycodone - Benzocaine lozenge and viscous lidocaine for throat pain CV: - No issues Pulm: - Comfortable on room air - Encourage OOB - IS 10x per hour Heme: - Hgb stable postoperatively. GI: - Seen by speech, recommend swallowing precautions. OK for thin liquids - Doc/senna - PRN reglan, zofran Renal: - Voiding spontaneously without difficulty ID: - Perioperative ancef completed Endo: - No issues Psych: - No issues Musc: - OOB as tolerated - No heavy lifting, no twisting, no bending. - Elevate HOB to 45 degrees - PT/OT PPx: - SCD's. No pharmacologic ppx postoperatively per ortho - No indication for GI ppx FEN: - Pureed diet - SLIV - Replete lytes PRN Dispo: - Plan for discharge home today per primary team. To be discussed with Dr Cota. Sho Amos PGY1 Visit type - Emergency Visit Emergency Visit: No - New Patient This patient is new to me today: No - Critical Care Critical Care patient: Yes Total Critical Care Time (in minutes): 45 Critical Care Statement: The care of this patient involved high complexity decision making to prevent further life threatening deterioration of the patient 's condition and/or to evaluate & treat vital organ system(s) failure or risk of failure.
--- NOTE | 2017-12-22 14:55 | PATH ---
Surgical Pathology Report Patient Name: SE MOSQUEDA Med. Rec. 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 Specimen(s) Received C3-C5 DISC Clinical History Cervical disorder with myelopathy Final Diagnosis C3-C5 DISC, DISCECTOMY: CARTILAGE WITH DEGENERATIVE CHANGES. Electronically Signed Beverley Dia M.D. Gross Description Received in formalin labeled "C3-C5 disc" are multiple fragments of pink-smallwood to light smallwood fibrocartilaginous tissue measuring in aggregate 4 x 4 x 1.2 cm. Farm[employer] Crop sections are submitted in one cassette. MLSZ/12/20/2017 [place]/12/20/2017
[2017-12-22 15:37] VITALS: BP 113/74; TEMP 98.6
--- NOTE | 2017-12-23 13:55 | DS ---
Physical Exam: SUBJECTIVE: Patient seen and examined this AM. His only complaint is some soreness in his throat when he eats. He has passed flatus but not had a bowel movement yet. OBJECTIVE: Vital Signs Period Temp Pulse Resp BP Sys/R[place] Pulse Ox Last 24 Hr 98.6 F 88 20 113/74 PHYSICAL EXAM GENERAL: A&O, no acute distress HEAD: Normocephalic, atraumatic. EYES: PERRL, no scleral icterus EARS, NOSE, THROAT: oropharynx clear without exudates. Moist mucous membranes. NECK: supple without lymphadenopathy, dressing in tact anteriorly, clean and dry , minimal tenderness to palpation LUNGS: CTA b/l, no crackles or wheezes HEART: Regular rate and rhythm, normal S1 and S2 without murmur ABDOMEN: Soft, nontender to palpation, normoactive bowel sounds MUSCULOSKELETAL: No bony deformities or tenderness. NEUROLOGICAL: Cranial nerves II-XII grossly intact. Normal speech. PSYCHIATRIC: Cooperative. Good eye contact. Appropriate mood and affect. LABS HOSPITAL COURSE: Date of Admission:12/20/17 Date of Discharge: 12/23/17 42 yo Male with no PMH admitted s/p C4-C5 ACDF with Dr. Mayfield. POD 2. There were no intraop or perioperative complications. Pt was passing flatus and tolerating a dysphagia pureed diet well. He had a speech and swallow eval and was recommended to be discharged on the dysphagia pureed diet to be advanced as tolerated. It was recommended that he have an outpatient modified barium swallow if his mild dysphagia does not resolve within a few days. He was medically safe for discharge and recommended to follow up with Dr. Mayfield in the office on 12/31/17. Minutes to complete discharge: 35 Discharge Summary Reason For Visit: CERVICAL DISORDER W MYELOPATHY Condition: Good - Instructions Diet, Activity, Other Instructions: You were admitted for observation after your cervical spine surgery with Dr. Mayfield. After the procedure, your pain was controlled adequately, and you had no post op complications other than a sore throat which is expected and should resolve. You can continue to use throat numbing spray like a lidocaine spray or lozenges over the counter in addition to over the counter Tylenol. You should not take more than 4000mg of Tylenol in 24 hours. If you have pain which is not improved with Tylenol, you should call Dr. Mendoza office to be evaluated and he can decide whether or not to prescribe additional pain medications. Activity: No heavy lifting, bending or twisting. You have a soft collar neck brace at home that you can use, though you do not require it consistently. Light activity and rest till next doctor visit. Wound Care: Keep dressing clean and dry. Diet: You are being discharged on a dysphagia pureed diet, which you can slowly advance as you are able to tolerate. Small Bites, Chin Tuck/Down, Safe Rate, OOB for meals, OOB for 1 h. after meals , Other (alternate puree with 2 swallows, followed by a sip of water. Complete meal with water.) If you are not able to advance to regular diet over the next few days, you will need outpatient Modified Barium Swallow study. Please follow up with Speech therapy department at the hospital or discuss with your doctor. You should follow up with Dr. Mayfield in his office on December 31, 2017. You should call and make an appointment upon discharge from the hospital. If you have severe worsening of pain, swelling of your neck, worsening difficulty of swallowing, or difficulty breathing, call 911 or come to ED immediately. Referrals: Se Mayfield MD [Staff Physician] - 12/31/17 Disposition: VNS/HOME HEALTH CARE - Home Medications Comprehensive Discharge Medication List: Ambulatory Orders Acetaminophen [Tylenol .Regular Strength -] 650 mg PO Q6H PRN tablet 12/22/17 Docusate Sodium [Colace -] 100 mg PO BID capsule 12/22/17 Lidocaine 2% Viscous Oral [Xylocaine 2% Viscous Oral -] 15 ml MM Q6H PRN #1 ud 12/22/17 This patient is new to me today: No Emergency Visit: No Critical Care patient: Yes Total Critical Care Time (in minutes): 35 Critical Care Statement: The care of this patient involved high complexity decision making to prevent further life threatening deterioration of the patient 's condition and/or to evaluate & treat vital organ system(s) failure or risk of failure. - Discharge Referral Referred to [facility] No
== END 2017-12-22 15:40 | disposition home health service (06) | DRG 473 ==
LOC: JSAMEDAYSX 06:10 → EDSTATUS 08:00 → JICU 14:42
PROVIDERS: ADMIT Orthopaedic Surgery Orthopaedic Surgery of the Spine; ATTEND Hospitalist
PROC: 0RG10A0 Fusion of Cervical Vertebral Joint with Interbody Fusion Device, Anterior Approach, Anterior Column, Open Approach (ICD-10-PCS; 2017-12-20)
PROC: 0RB30ZZ Excision of Cervical Vertebral Disc, Open Approach (ICD-10-PCS; principal; 2017-12-20 08:00)
DX: M50.10 Cervical disc disorder with radiculopathy, unspecified cervical region (principal); D72.829 Elevated white blood cell count, unspecified; R13.10 Dysphagia, unspecified
CPT/HCPCS: 36415; 80048; 83735; 84100; 85027; 86850; 86900; 86901; 88304-TC; 94760; 97116-GP; 97162-GP; J0131; J1644